=== PATIENT | male | born 1995 | race Caucasian/White ===

== ENCOUNTER 2020-10-10 09:47 | Emergency (ER) | payer OTHER ==
[2020-10-10 10:06] VITALS: BP 137/72; PULSE 58; TEMP 98; BMI 23.5
== END 2020-10-10 11:24 | disposition home or self-care (01) ==
LOC: FER 09:47
DX: S05.02XA Injury of conjunctiva and corneal abrasion without foreign body, left eye, initial encounter (principal)
CPT/HCPCS: 99283-25